=== PATIENT | female | born 1970 | race African-American/Black ===

== ENCOUNTER 2019-05-25 10:26 | Day surgery (SDC) | payer OTHER ==
[2019-05-23 16:08] VITALS: BMI 37.8
--- NOTE | 2019-05-25 07:47 | HP ---
History & Physical Update - History History: No Change - Physical Physical: No Change - Assessment Assessment: No Change - Plan Plan: No Change (Full H&P in chart from 05/22/19)
--- NOTE | 2019-05-25 10:14 | OP ---
Operative Note - Note: Operative Date: 05/25/19 Pre-Operative Diagnosis: Leiomyomatous Uterus. Abdominal Pain. Intramural myoma Operation: Laparoscopic Robotic Total Hysterectomy. Bilateral salpingectomy Findings: Multiple myomatous uterus 16 cm fallopian tubes normal ovaries normal Post-Operative Diagnosis: Same as Pre-op Surgeon: Laura Nagel Armature Repairer: Tim Garcia Anesthesia: General Estimated Blood Loss (mls): 100 Operative Report Dictated: Yes
[~2019-05-25 10:26] MED LIST: ACETAMINOPHEN 325 MG TABLET (FP) PO PRN; BISACODYL 5 MG TABLET.DR (FP) PO PRN; BUPIVACAINE HCL/PF 0.5% (5 MG/ML) 30 ML VIAL IJ ONE; BUPIVACAINE HCL/PF 0.5% (5MG/ML) 10 ML VIAL IJ ONE; CEFAZOLIN 2 GM/D5W 2 GM/50 ML ML IVPB ONE; DESFLURANE GAS 240 ML BOTTLE IH ONE; DEXAMETHASONE SOD PHOSPHATE 4 MG/1 ML VIAL ONE; DOCUSATE SODIUM 100 MG CAPSULE (FP) PO PRN; MIDAZOLAM HCL 2 MG/2 ML SINGLE DOSE VIAL ONE; NEOSTIGMINE METHYLSULFATE 0.5 MG/ML - 10 ML MDV ONE; ONDANSETRON 4 MG/2 ML VIAL IVPUSH PRN; PHENAZOPYRIDINE HCL 100 MG TABLET (FP) ONE; PHENAZOPYRIDINE HCL 100 MG TABLET (FP) PO ONE; PROPOFOL 20 ML ONE; ROCURONIUM BROMIDE 50 MG/5 ML SYRINGE ONE; SIMETHICONE 80 MG TAB.CHEW (FP) PO PRN; SUCCINYLCHOLINE CHLORIDE 200 MG/10 ML SYRINGE ONE; ceFAZolin SODIUM 1 GM VIAL IVPB ONE; ceFAZolin SODIUM 1 GM VIAL ONE; fentaNYL CITRATE 250 MCG/5 ML VIAL ONE; oxyCODONE HCL 5 MG TABLET PO PRN
--- NOTE | 2019-05-25 10:30 | SURG ---
Surgery Client Account Representative Note Client Account Representative: Tim Garcia PA-C Date of Service: 05/25/19 Diagnosis: Leiomyomatous Uterus. Abdominal Pain. Intramural myoma Procedure: Laparoscopic Robotic Total Hysterectomy. Bilateral salpingectomy I was present for the entirety of the operative procedure. For further detail, please refer to operative report. Visit type - Case Type Case Type: Scheduled - Emergency Emergency Visit: No - New patient This patient is new to me today: Yes Date on this admission: 05/25/19 - Critical Care Critical Care patient: No
[2019-05-25] MEDS ORDERED: LACTATED RINGERS SOLUTION 1,000 ML IV SCH (12:15)
--- NOTE | 2019-05-25 12:27 | OP ---
DATE OF OPERATION: 05/25/2019 PREOPERATIVE DIAGNOSIS: Leiomyomatous uterus, abdominal pain, and intramural myoma. OPERATION: Laparoscopic robotic total hysterectomy and bilateral salpingectomy. POSTOPERATIVE DIAGNOSIS: Leiomyomatous uterus, abdominal pain, intramural myomas, as well as serosal myomas. SURGEON: Laura Nagel MD HEAD TURNING MACHINE OPERATOR: Tim Garcia PA-C ANESTHESIA: General. PROCEDURE: Patient was taken to the operating room, placed in dorsal lithotomy position, prepped and draped in the usual sterile fashion. A time-out was the performed in accordance with hospital regulations. A speculum was placed in the vagina. The anterior lip of the cervix was grasped with a single-tooth tenaculum. Cervix was then dilated to accommodate the medium-sized [employer] device uterine manipulator. Martinez was then inserted in the bladder. All instruments were then removed except for the manipulator. Attention was then drawn to the umbilicus, where an 8-mm umbilical incision was made. Veress needle was inserted into the cavity. Approximately 3-4 L of CO2 was insufflated into the cavity. Veress needle was then removed, and an 8-mm trocar was then inserted. Laparoscope and camera were attached. Visualization revealed multiple myomas, leiomyomatous uterus about 16 weeks in size. Trocars were then inserted, 2 on the left about 8 mm apart. Then, 8-mm incisions were made and trocars were inserted without difficulty or injury to the underlying viscera. One trocar was inserted into the upper abdomen and one parallel to the umbilicus. Two on the right were inserted both parallel to the umbilicus, 10 cm apart each under direct visualization. The da Lashaun robot was then side-docked to the patients bedside, and trocars were then placed onto the da Lashaun robot. Instruments were then placed. The tenaculum was placed in 4, EndoShears placed in 3, vessel sealer was placed in 1, and camera in 2. AirSeal cannula was activated, and after all instruments were placed in visualization above the uterus, attention was then drawn turned to the console, where control of the console was then performed. Tenaculum was then used to elevate the uterus over to the right side. Utero-ovarian ligament was identified and clamped and cut. Tube was identified and clamped and cut. Round ligament was identified and clamped and cut. The uterine arteries were identified and clamped and cut. All using vessel sealer. Vesicouterine reflection was then entered. Bladder was then bluntly dissected out of the operative field. Cardinal ligaments were identified and clamped and cut down to the level of the cervix. The same procedure was repeated on the right side. Utero-ovarian ligament was identified and clamped and cut. Tube was identified and clamped and cut. The uterine arteries were identified and clamped and cut. All using vessel sealer. Cardinal ligaments were identified and clamped and cut down to the level of the cervix. The vagina was then entered using EndoShears and cutting of the vagina away from the cervix was then performed. The ureters were identified and both found to have peristalsis. After peristalsis was identified, the uterus was then exteriorized out of the vagina. Multiple myomas were seen in serosa. Suture of the cul-de-sac was then cleaned with sponge-stick. A 2-0 V-Loc suture was then introduced, and the da Lashaun robot was used to close the cuff in a continuous fashion. Hemostasis was achieved, and irrigation done. Needle was then removed. Tubes were bilaterally coagulated and cut and removed both right and left. Hemostasis was achieved. Needle was then removed. Trocars were then removed and incisions were all closed using 4-0 Biosyn sutures in subcuticular fashion. Wounds were washed and dressed. Patient tolerated the procedure well. Estimated blood loss was 100 mL. Rei [id number]
[2019-05-25] MEDS ORDERED: IBUPROFEN 800 MG/8 ML IJ IVPB ONE (14:26)
[2019-05-25] MEDS: IBUPROFEN 800 MG/8 ML IJ IVPB PRN ×2 (14:30→22:28)
[2019-05-25] MEDS: CEFAZOLIN 2 GM/D5W 2 GM/50 ML ML IVPB SCH (17:50)
[2019-05-25] MEDS ORDERED: ceFAZolin 2 GRAM PREMIX BAG IVPB SCH (18:00)
[2019-05-25 20:46] LABS: HEMATOCRIT 34.9 % (32.4-45.2); HEMOGLOBIN 11.6 GM/dL (10.7-15.3); MCH 29.2 pg (25.7-33.7); MCHC 33.2 g/dl (32.0-36.0); MEAN PLT VOLUME 8.7 fl (7.5-11.1); PLATELET COUNT 379 K/MM3 (134-434); RBC 3.97 M/mm3 (3.60-5.2); RDW 13.9 % (11.6-15.6); WHITE BLOOD COUNT 9.1 K/mm3 (4.0-10.0)
[2019-05-25 21:09] LABS: CALCIUM 9.1 mg/dL (8.5-10.1); CREATININE 0.9 mg/dL (0.55-1.3); POTASSIUM 4.4 mmol/L (3.5-5.1)
[2019-05-26] MEDS: CEFAZOLIN 2 GM/D5W 2 GM/50 ML ML IVPB SCH ×2 (01:48→09:13)
[2019-05-26] MEDS: oxyCODONE HCL 5 MG TABLET PO PRN ×2 (05:23→11:08)
[2019-05-26 08:57] LABS: HEMATOCRIT 31.9 % (32.4-45.2); HEMOGLOBIN 10.6 GM/dL (10.7-15.3); MCH 29.4 pg (25.7-33.7); MCHC 33.3 g/dl (32.0-36.0); MEAN CELL VOLUME 88.2 fl (80-96); MEAN PLT VOLUME 8.2 fl (7.5-11.1); PLATELET COUNT 340 K/MM3 (134-434); RBC 3.61 M/mm3 (3.60-5.2); RDW 13.5 % (11.6-15.6); WHITE BLOOD COUNT 8.7 K/mm3 (4.0-10.0)
[2019-05-26 09:12] LABS: BLOOD UREA NITROGEN 14.3 mg/dL (7-18); CALCIUM 8.7 mg/dL (8.5-10.1); CREATININE 0.7 mg/dL (0.55-1.3); POTASSIUM 3.9 mmol/L (3.5-5.1)
[2019-05-26] MEDS ORDERED: ENOXAPARIN NA (PORCINE) 40 MG/0.4 ML DISP.SYRIN SQ SCH (10:00)
--- NOTE | 2019-05-26 11:40 | PN ---
Progress Note (short form) - Note Progress Note: PT seen this am. She is passing flatus and tolerating a regular diet. No CP or SOB. Wood removed this am. Vital Signs Period Temp Pulse Resp BP Sys/Colón Pulse Ox Last 24 Hr 98.1 F-98.9 F 84-104 18-19 119-126/74-80 95-96 wood; 1050ml GEN: A&0x3, NAD CV: RRR Lungs: CTA b/l ABD: soft, non-distended, inc tenderness. Inc c/d/i LE: no calf tenderness or swelling noted b/l. CBC, BMP 05/26/19 08:00 05/26/19 08:00 A/P: 48 s/p robotic assisted hysterectomy and b/l salpingectomy Plan for discharge today to home after voiding on her own OOB and ambulate DVT ppx with SCD/lovenox SQ D/e Dr. Nagel/Dr. Beckwith
[2019-05-26 14:38] VITALS: BP 120/80; PULSE 104; TEMP 98.5
--- NOTE | 2019-05-30 15:30 | PATH ---
Surgical Pathology Report Patient Name: NATALIE ESCOBAR [facility]. Rec. #: [id number] /Age/Gender: 1970 (Age: 48) / F Account: [id number] Location: AMBULATORY SURG Taken: 05/25/2019 Received: 05/25/2019 Reported: 05/30/2019 Physicians: Laura Nagel M.D. Specimen(s) Received A: UTERUS AND CERVIX B: LEFT FALLOPIAN TUBE C: RIGHT FALLOPIAN TUBE Clinical History Fibroids Final Diagnosis A. UTERUS AND CERVIX, ROBOTIC LAPAROSCOPIC TOTAL HYSTERECTOMY: 503 G UTERUS. LEIOMYOMA(TA), SUBSEROSAL AND INTRAMURAL. ENDOMETRIAL POLYP. WEAKLY PROLIFERATIVE ENDOMETRIUM. MYOMETRIUM WITH ADENOMYOSIS. CERVIX WITHOUT SIGNIFICANT PATHOLOGIC FINDINGS. B. FALLOPIAN TUBE, LEFT, SALPINGECTOMY: FALLOPIAN TUBE WITH PARATUBAL CYST (INCLUDING FIMBRIATED END AND FULL LUMINAL PORTION). C. FALLOPIAN TUBE, RIGHT, SALPINGECTOMY: UNREMARKABLE FALLOPIAN TUBE (INCLUDING FIMBRIATED END AND FULL LUMINAL PORTION). Electronically Signed Erica Peterson M.D. Gross Description A. Received in formalin labeled "uterus and cervix" is a 503 g uterus with an attached cervix and no attached adnexa. The specimen measures 14 cm from superior to inferior, 9.5 cm from left to right and 9.5 cm from anterior to posterior. The serosa is stroud-pink with abundant bulging subserosal nodules. The attached cervix measures 4 cm in length and averages 1.8 cm in diameter. The ectocervix is stroud, smooth and glistening. The endocervix is unremarkable. The endometrial cavity measures 5.5 cm in length and averages 2 cm in diameter. The posterior endometrium displays a 0.8 x 0.6 x 0.2 cm stroud-red, polypoid lesion. The remaining endometrium is stroud-red and averages 0.1 cm in thickness. The myometrium displays abundant intramural nodules, measuring up to 5 cm in greatest dimension. The cut surface of the subserosal and intramural nodules is stroud and rubbery with whorled architecture. No areas of hemorrhage or necrosis are identified. The remaining myometrium is stroud-pink and measures up to 5 cm in thickness. Hr Business Partner Consultant sections are submitted in 13 cassettes as follows: 1-anterior cervix; 2-posterior cervix; 9-2-dzstjiry endomyometrium; 5-posterior endomyometrium with polyp; 6-additional posterior endomyometrium; 4-6-ryqgyftmyo nodules; 26-57-zwpjmvlxhi nodules. B. Received in formalin labeled "left fallopian tube," is a 3 cm in length fimbriated fallopian tube. The outer surface is stroud rust and smooth with a 0.5 cm greatest dimension paratubal cyst attached to the fimbria. Sectioning reveals an unremarkable lumen. Hr Business Partner Consultant sections are submitted in 2 cassettes as follows: 1-fimbria; 2-cross sections of fallopian tube. C. Received in formalin labeled "right fallopian tube," is a 2.7 cm in length fimbriated fallopian tube. The outer surface is rust purple and smooth. Sectioning reveals an unremarkable lumen. Hr Business Partner Consultant sections are submitted in 2 cassettes as follows: 1-fimbria; 2-cross sections of fallopian tube. 05/26/2019 [facility]05/26/2019
== END 2019-05-26 18:12 | disposition home or self-care (01) ==
LOC: JASUSAT 10:26 → J7W 15:26 → J6S 15:28 → JASUSAT 05-26 18:12
PROVIDERS: ATTEND Obstetrics & Gynecology
PROC: 0UT7FZZ Resection of Bilateral Fallopian Tubes, Via Natural or Artificial Opening With Percutaneous Endoscopic Assistance (ICD-10-PCS; 2019-05-25)
PROC: 8E0W4CZ Robotic Assisted Procedure of Trunk Region, Percutaneous Endoscopic Approach (ICD-10-PCS; 2019-05-25)
PROC: 0UT9FZZ Resection of Uterus, Via Natural or Artificial Opening With Percutaneous Endoscopic Assistance (ICD-10-PCS; principal; 2019-05-25 07:30)
DX: D25.1 Intramural leiomyoma of uterus (principal); D25.2 Subserosal leiomyoma of uterus
CPT/HCPCS: 58554; S2900; 36415; 80048; 84703; 85027; 86850; 86900; 86901; 88302-TC; 88307-TC; 94760